=== PATIENT | male | born 1995 | race Two or more races ===

== ENCOUNTER → 2018-11-18 13:40 | Outpatient (CLI) | payer SELFPAY ==
--- NOTE | 2018-11-18 13:45 | XR_ITS ---
PROCEDURE: XR ANKLE LT MIN 3V CLINICAL INDICATION: follow up distal fibula fracture Follow-up fracture COMPARISON: XR ANKLE LT MIN 3V from 11/08/2018 FINDINGS: Nondisplaced transverse fracture at the base the lateral malleolus once again noted. Fracture line appears somewhat less apparent suggesting early healing. Soft tissue swelling once again noted which is shown some improvement. IMPRESSION: Good alignment nondisplaced distal fibular fracture with some improvement in soft tissue swelling Dictated by: Rahul Adam MD 11/18/2018 16:03 Signed by: <Electronically signed by Rahul Adam MD in [place]> 11/18/2018 16:03
== END ==
PROVIDERS: Visit Provider Orthopaedic Surgery
DX: S82.832A Other fracture of upper and lower end of left fibula, initial encounter for closed fracture (principal)
CPT/HCPCS: 73610

== ENCOUNTER → 2018-12-16 08:50 | Outpatient (CLI) | payer OTHER, SELFPAY ==
--- NOTE | 2018-12-16 08:54 | XR_ITS ---
PROCEDURE: XR ANKLE LT MIN 3V CLINICAL INDICATION: follow up left ankle; xrays out of cam walker Follow-up fracture COMPARISON: XR ANKLE LT MIN 3V from 11/08/2018 FINDINGS: Nondisplaced transverse fracture involves the distal fibula at the level of the ankle joint. Fracture line is once again noted not significantly changed. Soft tissue swelling has improved. IMPRESSION: No change nondisplaced distal fibular fracture Dictated by: Rahul Adam MD 12/16/2018 13:10 Electronically signed by Rahul Adam MD in [place] 12/16/2018 13:10
== END ==
PROVIDERS: Visit Provider Orthopaedic Surgery
DX: S82.62XA Displaced fracture of lateral malleolus of left fibula, initial encounter for closed fracture (principal)
CPT/HCPCS: 73610